=== PATIENT | female | born 1980 | race Caucasian/White ===

== ENCOUNTER 2017-10-01 12:30 | Emergency (ER) | payer OTHER ==
[~2017-10-01] VITALS: Ht 167.6 cm; Wt 56.5 kg
[2017-10-01 12:30] VITALS: BP 119/73; PULSE 78; RESP 20; TEMP 98.4; O2SAT 100
[2017-10-01] MEDS ORDERED: guaiFENesin/CODEINE SYRUP 200 MG/20 MG/10 ML CUP PO ONE (13:00)
--- NOTE | 2017-10-01 13:10 | PD ---
HPI Chief Complaint: Cold / Flu Symptoms Time Seen by Provider: 12:41 Travel History International Travel<30 days: No Contact w/Intl Traveler<30days: No Traveled to known affect area: No History of Present Illness HPI 37-year-old female presents to the emergency department concerned about a cough and discomfort with coughing since June. States that she was sick in June and has not been able to follow-up with her primary care physician until September [address] Patient was given Augmentin and Tessalon Perles for her cough and chest discomfort. States she has had chest pain described as stabbing pain with coughing and hiccups. Patient states that the chest pain is located on the right and does not radiate. She has also has some shortness of breath and anxiety. States she has felt feverish but has not actually checked her temperature. Patient denies recent travel, surgeries, trauma, medication use. PFSH Past Medical History Anxiety: Yes Gastrointestinal Disorders: Yes (IBS) ?: Not Past Surgical History Cholecystectomy: Yes Social History Alcohol Use: Yes Tobacco Use: No Substance Use: No Allergies-Medications (Allergen,Severity, Reaction): Coded Allergies: No Known Allergies (Unverified , 10/01/17) Reported Meds & Prescriptions Reported Meds & Active Scripts Active Ventolin Hfa 18 GM Inh (Albuterol Sulfate) 90 Mcg/Act Aer 2 Puff INH Q6H PRN Medrol Dosepak (Methylprednisolone) 4 Mg Dspk 4 Mg PO DIRECTED Per Pharmacist direction Review of Systems Except as stated in HPI: all other systems reviewed are Neg Physical Exam Narrative GENERAL: Extremely anxious, well-developed well-nourished SKIN: Focused skin assessment warm/dry. HEAD: Atraumatic. Normocephalic. EYES: Pupils equal and round. No scleral icterus. No injection or drainage. ENT: No nasal bleeding or discharge. Mucous membranes pink and moist. NECK: Trachea midline. No JVD. No lymphadenopathy THROAT: No pharyngeal injection, exudates, or tonsillar hypertrophy. Airway is patent. CARDIOVASCULAR: Regular rate and rhythm. No murmur appreciated. No TTP of chest RESPIRATORY: No accessory muscle use. Clear to auscultation. Breath sounds equal bilaterally. Unable to reproduce the pain with palpation GASTROINTESTINAL: Abdomen soft, non-tender, nondistended. Hepatic and splenic margins not palpable. MUSCULOSKELETAL: No obvious deformities. No clubbing. No cyanosis. No edema. No CVA tenderness NEUROLOGICAL: Awake and alert. No obvious cranial nerve deficits. Motor grossly within normal limits. Normal speech. PSYCHIATRIC: Anxious Data Data Last Documented VS Vital Signs Date Time Temp Pulse Resp B/P (MAP) Pulse Ox O2 Delivery O2 Flow Rate FiO2 10/01/17 12:30 98.4 78 20 119/73 (88) 100 Room Air Orders Orders D-Dimer (10/01/17 12:50) Guaifen-Cod 200-20 Mg/10ml Liq (Robituss (10/01/17 13:00) Urinalysis - C+S If Indicated (10/01/17 12:50) Complete Blood Count With Diff (10/01/17 12:50) Basic Metabolic Panel (Bmp) (10/01/17 12:50) Famotidine Inj (Pepcid Inj) (10/01/17 14:00) Al-Mag Hy-Si 40-40-4 Mg/Ml Liq (Mag-Al P (10/01/17 14:00) Chest, Pa & Lat (10/01/17 ) Ibuprofen (Motrin) (10/01/17 15:00) Ed Discharge Order (10/01/17 14:57) Labs Laboratory Tests Test 10/01/17 13:25 10/01/17 13:30 Urine Color YELLOW Urine Turbidity HAZY Urine pH 5.5 Urine Specific [place] 1.028 Urine Protein 30 mg/dL Urine Glucose (UA) NEG mg/dL Urine Ketones 10 mg/dL Urine Occult Blood SMALL Urine Nitrite NEG Urine Bilirubin NEG Urine Urobilinogen 2.0 MG/DL Urine Leukocyte Esterase MOD Urine RBC LESS THAN 1 /hpf Urine WBC 4 /hpf Urine Squamous Epithelial Cells 4 /hpf Urine Calcium Oxalate Crystals MANY /hpf Urine Bacteria RARE /hpf Urine Hyaline Casts 7 /lpf Urine Mucus FEW /lpf Microscopic Urinalysis Comment CULT NOT INDICATED White Blood Count 10.1 TH/MM3 Red Blood Count 4.74 MIL/MM3 Hemoglobin 13.9 GM/DL Hematocrit 40.1 % Mean Corpuscular Volume 84.7 FL Mean Corpuscular Hemoglobin 29.3 PG Mean Corpuscular Hemoglobin Concent 34.6 % Red Cell Distribution Width 13.2 % Platelet Count 311 TH/MM3 Mean Platelet Volume 7.9 FL Neutrophils (%) (Auto) 63.2 % Lymphocytes (%) (Auto) 29.3 % Monocytes (%) (Auto) 6.0 % Eosinophils (%) (Auto) 1.0 % Basophils (%) (Auto) 0.5 % Neutrophils # (Auto) 6.4 TH/MM3 Lymphocytes # (Auto) 2.9 TH/MM3 Monocytes # (Auto) 0.6 TH/MM3 Eosinophils # (Auto) 0.1 TH/MM3 Basophils # (Auto) 0.1 TH/MM3 CBC Comment DIFF FINAL Differential Comment D-Dimer Quantitative (PE/DVT) LESS THAN 0.19 MG/L FEU Blood Urea Nitrogen 13 MG/DL Creatinine 0.87 MG/DL Random Glucose 114 MG/DL Calcium Level 9.1 MG/DL Sodium Level 135 MEQ/L Potassium Level 3.8 MEQ/L Chloride Level 104 MEQ/L Carbon Dioxide Level 26.2 MEQ/L Anion Gap 5 MEQ/L Estimat Glomerular Filtration Rate 72 ML/MIN MDM Medical Decision Making Medical Screen Exam Complete: Yes Emergency Medical Condition: Yes Differential Diagnosis Upper respiratory infection versus pulmonary embolism versus thoracic aneurysm versus bronchitis Narrative Course 37-year-old female presents to the emergency department concerned about a cough and discomfort with coughing since June. States that she was sick in June and has not been able to follow-up with her primary care physician until September [address] Patient was given Augmentin and Tessalon Perles for her cough and chest discomfort. States she has had chest pain described as stabbing pain with coughing and hiccups. Patient states that the chest pain is located on the right and does not radiate. She has also has some shortness of breath and anxiety. States she has felt feverish but has not actually checked her temperature. Patient denies abdominal pain or any other complaints. Patient denies recent travel, surgeries, trauma, medication use. Vital signs stable Physical exam- unremarkable, extremely anxious Because of patient's extended chest pain and anxiety, low pretest probability, ordered d-dimer which was negative. Labs stable Patient will be discharged with albuterol and Medrol Dosepak. Advised patient follow-up with primary care physician within 2-3 days. Return to the ED for worsening or persistent symptoms. Diagnosis Primary Impression: Upper respiratory infection Qualified Codes: J06.9 - Acute upper respiratory infection, unspecified; B97.89 - Other viral agents as the cause of diseases classified elsewhere Referrals: [facility] Additional Instructions: Follow-up with her primary care physician within 2-3 days Take medication as prescribed Scripts Albuterol 18 GM Inh (Ventolin Hfa 18 GM Inh) 90 Mcg/Act Aer 2 PUFF INH Q6H Y for SHORTNESS OF BREATH, #1 INHALER 0 Refills Prov: Patsy Beebe MD 10/01/17 Methylprednisolone Dosepak (Medrol Dosepak) 4 Mg Dspk 4 MG PO DIRECTED, #1 DSPK 0 Refills Per Pharmacist direction Prov: Patsy Beebe MD 10/01/17 Disposition: 01 DISCHARGE HOME Condition: Stable Monica Phan Oct 01, 2017 13:10
[2017-10-01 13:51] LABS: AUTOMATED NEUTROPHIL # 6.4 TH/MM3 (1.8-7.7); BASOPHIL # 0.1 TH/MM3 (0-0.2); BASOPHIL % 0.5 % (0.0-2.0); EOSINOPHIL # 0.1 TH/MM3 (0-0.4); HEMATOCRIT 40.1 % (35.0-46.0); HEMO FLAGS DIFF FINAL; LYMPH % 29.3 % (9.0-44.0); LYMPHOCYTE # 2.9 TH/MM3 (1.0-4.8); MEAN CELL VOLUME 84.7 FL (80.0-100.0); MEAN CORPUSCULAR HEMOGLOBIN 29.3 PG (27.0-34.0); MEAN CORPUSCULAR HGB CONC 34.6 % (32.0-36.0); NEUT % 63.2 % (16.0-70.0); PLATELET COUNT 311 TH/MM3 (150-450); RED BLOOD COUNT 4.74 MIL/MM3 (4.00-5.30); RED CELL DISTRIBUTION WIDTH 13.2 % (11.6-17.2); WHITE BLOOD COUNT 10.1 TH/MM3 (4.0-11.0)
[2017-10-01] MEDS ORDERED: FAMOTIDINE 20 MG/2 ML VIAL IV PUSH ONE (14:00)
[2017-10-01] MEDS ORDERED: ALUMINUM/MAGNESIUM/SIMETH 30 ML CUP PO ONE (14:00)
[2017-10-01 14:04] LABS: BACTERIA, URINE RARE /hpf; BLOOD, URINE SMALL (NEG); CALCIUM OXALATE CRYSTALS,URINE MANY /hpf; COMMENT (UR) CULT NOT INDICATED; CULTURE IF INDICATED CULT NOT INDICATED; GLUCOSE,URINE NEG (NEG); HYALINE CAST, URINE 7 /lpf (RARE); KETONE, URINE 10 mg/dL (NEG); MUCUS URINE FEW /lpf (OCC); NITRITE,URINE NEG (NEG); PH, URINE 5.5 (5.0-8.5); SQUAMOUS EPITHELIAL CELL URINE 4 /hpf (0-5); URINE COLOR YELLOW (YELLW/STRAW)
[2017-10-01 14:08] LABS: BICARBONATE 26.2 MEQ/L (21.0-32.0); POTASSIUM 3.8 MEQ/L (3.5-5.1)
--- NOTE | 2017-10-01 14:38 | RADRPT ---
EXAM DATE/TIME: 10/01/2017 14:27 [place] COMPARISON: No previous studies available for comparison. INDICATIONS : Cough and chest pain. MEDICAL HISTORY : None. SURGICAL HISTORY : Cholecystectomy. ENCOUNTER: Initial ACUITY: 3 months PAIN SCORE: 8/10 LOCATION: Right chest FINDINGS: The cardiac silhouette is normal in transverse diameter. The lungs are free of acute parenchymal opac ity. No effusions are identified. There are surgical clips in the right upper quadrant compatible wit h prior cholecystectomy. Moderate scoliotic deformity is present to the right with a rotatory compone nt with the apex at T8. Pectus excavatum deformity is present. CONCLUSION: 1. No acute cardiopulmonary disease. 1. Marco Payne MD on October 01, 2017 at 14:35 Board Certified Radiologist. This report was verified electronically.
[2017-10-01] MEDS ORDERED: MEDR4PAK PO (14:48)
[2017-10-01] MEDS ORDERED: VENTAER INH (14:52)
[2017-10-01] MEDS ORDERED: IBUPROFEN 800 MG TAB PO ONE (15:00)
== END 2017-10-01 15:46 | disposition home or self-care (01) ==
LOC: NEPD 12:30
DX: J06.9 Acute upper respiratory infection, unspecified (principal); B97.89 Other viral agents as the cause of diseases classified elsewhere; R05 Cough; R07.89 Other chest pain; R06.02 Shortness of breath; F41.9 Anxiety disorder, unspecified; Z86.59 Personal history of other mental and behavioral disorders; Z87.19 Personal history of other diseases of the digestive system
CPT/HCPCS: 71020; 80048; 81001; 85025; 85379; 96374

== ENCOUNTER 2018-05-02 12:16 | Emergency (ER) | payer OTHER ==
[~2018-05-02] VITALS: Ht 167.6 cm; Wt 60.0 kg
[~2018-05-02 12:16] MED LIST: MEDR4PAK PO; VENTAER INH
[2018-05-02 12:37] VITALS: BP 109/65; PULSE 81; RESP 18; TEMP 100; O2SAT 99
--- NOTE | 2018-05-02 13:28 | RADRPT ---
EXAM DATE: 05/02/2018 1:13 PM EDT AGE/SEX: 37 years / Female INDICATIONS: Right hand pain and bump around carpal area after fall and getting hand stuck in oven h andle. CLINICAL DATA: This is the patient's initial encounter. Patient reports that signs and symptoms have been present for 2 days and indicates a pain score of 5/10. MEDICAL/SURGICAL HISTORY: None. None. COMPARISON: No prior exams available for comparison. FINDINGS: Bony structures are intact and in normal alignment. Osseous density is normal. Soft tissues are unre markable. No radiopaque foreign bodies seen. CONCLUSION: No acute fracture right hand. Electronically signed by: Kevin Mcdonough MD 05/02/2018 1:26 PM EDT
--- NOTE | 2018-05-02 14:31 | PD ---
HPI Chief Complaint: Injury Time Seen by Provider: 14:26 Travel History International Travel<30 days: No Contact w/Intl Traveler<30days: No Traveled to known affect area: No History of Present Illness HPI 37-year-old female presents emergency department for evaluation right hand pain. Patient is right-handed and states that she hit her hand on the oven and got caught 1 week ago. She states her hand was initially swollen but that has gone down. She states there is now a bump and she feels like there is a bone sticking out. She reports pain on the dorsum of the right hand, constant, moderate in severity. She states is exacerbated by touch or movement. She has had no other symptoms to report. [facility] Past Medical History Anxiety: Yes Gastrointestinal Disorders: Yes (IBS) ?: Not LMP: APRIL 2018 Past Surgical History Cholecystectomy: Yes Social History Alcohol Use: Yes Tobacco Use: No Substance Use: No Allergies-Medications (Allergen,Severity, Reaction): Coded Allergies: No Known Allergies (Unverified , 10/01/17) Reported Meds & Prescriptions Reported Meds & Active Scripts Active Ventolin Hfa 18 GM Inh (Albuterol Sulfate) 90 Mcg/Act Aer 2 Puff INH Q6H PRN Medrol Dosepak (Methylprednisolone) 4 Mg Dspk 4 Mg PO DIRECTED Per Pharmacist direction Review of Systems Except as stated in HPI: all other systems reviewed are Neg Physical Exam Narrative GENERAL: Well-nourished female patient, ambulatory and in no acute distress. SKIN: Focused skin assessment warm/dry. HEAD: Atraumatic. Normocephalic. EYES: Pupils equal and round. No scleral icterus. No injection or drainage. ENT: No nasal bleeding or discharge. Mucous membranes pink and moist. NECK: Trachea midline. No JVD. CARDIOVASCULAR: Regular rate and rhythm. No murmur appreciated. RESPIRATORY: No accessory muscle use. Clear to auscultation. Breath sounds equal bilaterally. MUSCULOSKELETAL: No obvious deformities. No clubbing. No cyanosis. No edema. There is a subcentimeter palpable nodule on the dorsal aspect of the right hand between the second and third metacarpals. No erythema or edema. Patient has 5 + machine fur cleaner strength bilateral hands. NEUROLOGICAL: Awake and alert. No obvious cranial nerve deficits. Motor grossly within normal limits. Normal speech. PSYCHIATRIC: Appropriate mood and affect; insight and judgment normal. Data Data Last Documented VS Vital Signs Date Time Temp Pulse Resp B/P (MAP) Pulse Ox O2 Delivery O2 Flow Rate FiO2 05/02/18 12:37 100.0 81 18 109/65 (80) 99 Orders Orders Hand, Complete ([id number]) (05/02/18 ) Cesar Bandage (05/02/18 14:29) Ed Discharge Order (05/02/18 14:29) MDM Medical Decision Making Medical Screen Exam Complete: Yes Emergency Medical Condition: Yes Medical Record Reviewed: Yes Differential Diagnosis Ganglion cyst versus contusion versus sprain versus fracture Narrative Course 37-year-old female presents emergency department for evaluation right hand pain 1 week. Patient appears well. The hand has no obvious deformities. There is a palpable nodule on the dorsum of the right hand. X-ray imaging confirms no acute bony abnormality. Have encouraged patient to seek an specialist evaluation if it continues to bother her but at this time there are no for emergent intervention. She has been provided an Cesar wrap for compression per her request. She will be discharged at this time. Diagnosis Primary Impression: Contusion of right hand Qualified Codes: S60.221A - Contusion of right hand, initial encounter Referrals: Hand Surgeon Primary Care Physician Patient Instructions: Contusion in Adults (ED), General Instructions Additional Instructions: Cesar wrap for support Follow up with hand specialist if symptoms persist Tylenol or ibuprofen as directed on the package as needed for pain Return to ED with acute worsening of symptoms Med/Other Pt SpecificInfo: No Change to Meds Disposition: 01 DISCHARGE HOME Condition: Stable Tisha Dial May 02, 2018 14:31
== END 2018-05-02 14:44 | disposition home or self-care (01) ==
LOC: NEPE 12:16
DX: S60.221A Contusion of right hand, initial encounter (principal); W22.8XXA Striking against or struck by other objects, initial encounter; Z79.899 Other long term (current) drug therapy
CPT/HCPCS: 73130; 99283